=== PATIENT | male | born 1955 | race Caucasian/White ===

== ENCOUNTER 2021-11-25 13:45 | Emergency (ER) | payer MEDICAID, MEDICARE, OTHER | END 2021-11-25 14:57 | disposition home or self-care (01) | LOC: JP.ED 13:45 | DX: U07.1 COVID-19 (principal); Z88.5 Allergy status to narcotic agent; Z79.899 Other long term (current) drug therapy; Z86.16 Personal history of COVID-19 | CPT/HCPCS: 99284 ==